=== PATIENT | female | born 2000 | race Caucasian/White ===

== ENCOUNTER 2022-07-31 16:22 | Outpatient (CLI) | payer OTHER | END 2022-07-31 16:23 | disposition short-term general hospital (02) | LOC: EMS 16:22 | DX: S52.91XA Unspecified fracture of right forearm, initial encounter for closed fracture (principal); V49.40XA Driver injured in collision with unspecified motor vehicles in traffic accident, initial encounter; Y92.413 State road as the place of occurrence of the external cause | CPT/HCPCS: A0425; A0427 ==